=== PATIENT | male | born 1955 | race African-American/Black ===

== ENCOUNTER 2016-11-17 10:48 | Emergency (ER) | payer OTHER, SELFPAY ==
--- NOTE | 2016-11-17 11:56 | RAD ---
CHEST TWO VIEWS: History: Cough. Comparison: 09-06-03 FINDINGS: The cardiac silhouette and pulmonary vasculature are unremarkable. Lungs are well inflated. There is no confluent airspace consolidation, pneumothorax, or pleural fluid evident. Calcific thickening along the lateral margin of the right apex is stable. Post-operative changes of the left coracoid process are evident. Calcified granuloma are consistent with healed granulomatous disease. Nipple shadows overlie the lung bases. IMPRESSION: No active cardiopulmonary abnormalities are demonstrated. POS: [facility]
[2016-11-17 12:01] LABS: Bilirubin Negative (Negative); Blood, Urine Trace (Negative); Clarity Clear (Clear); Glucose, Urine (Dipstick) Negative (Negative); Leukocyte Negative (Negative); Nitrite Negative (Negative); Protein, Urine (Dipstick) Negative (Neg-Trace); Urobilinogen 0.2 mg/dL (0.2-1.0)
[2016-11-17 12:02] LABS: #Eosinphils 0.2 thou/uL (0.0-0.7); #Monocytes 0.5 thou/uL (0.11-0.59); #Neutrophils 2.8 thou/uL (1.40-6.50); %Basophils 0.8 % (0.0-1.0); %Eosinophils 3.2 % (0.0-10.0); %Lymphocytes 36.8 % (21.0-51.0); %Monocytes 8.3 % (0.0-10.0); %Neutrophils 50.9 % (42.0-75.0); Hemoglobin 12.9 g/dL (14.0-18.0); Mean Corpuscular HGB CONC 32.8 g/dL (32.0-36.0); Mean Corpuscular Hemoglobin 32.4 pg (27.0-31.0); Mean Corpuscular Volume 99.1 fl (80.0-94.0); Mean Platelet Volume 8.1 fL (7.4-10.4); Platelet Count 223 thou/uL (130-400); RBC Distribution Width 13.1 % (11.5-14.5); Red Blood Cell (RBC) Count 3.99 mill/uL (4.70-6.10); White Blood Cell (WBC) Count 5.5 thou/uL (4.8-10.8)
[2016-11-17 12:09] LABS: PTT 32.8 SEC (22.9-36.1); Prothrombin Time 13.8 SEC (12.0-14.7)
[2016-11-17 12:10] LABS: Bacteria/HPF None Seen HPF (None Seen); Squamous Epithelial 0-3 HPF (0-3); WBC/HPF 0-3 HPF (0-3)
[2016-11-17 12:13] LABS: Amphetamine Not Detected (NotDetected); Barbiturates Screen Not Detected (NotDetected); Benzodiazepine Screen Not Detected (NotDetected); Cocaine Metabolite Screen Not Detected (NotDetected); Medtox Control Line Valid? VALID (VALID); Methadone Not Detected (NotDetected); Methamphetamine Not Detected (NotDetected); Opiate Screen Detected (NotDetected); Oxycodone Screen Not Detected (NotDetected); Phencyclidine (PCP) Not Detected (NotDetected); THC/Cannabinoid Screen Detected (NotDetected); Tricyclic Screen Not Detected (NotDetected)
[2016-11-17 12:19] LABS: ALT (SGPT) 29 U/L (0-55); AST (SGOT) 27 U/L (5-34); Albumin 3.9 g/dL (3.4-4.8); Alkaline Phosphatase 95 U/L (40-150); Anion Gap 13 mmol/L (10-20); BUN (Urea Nitrogen) 10 mg/dL (8.4-25.7); Bilirubin, Total 0.3 mg/dL (0.2-1.2); Calc. Creatinine Clearance 0 mL/min (70-130); Calcium 9.4 mg/dL (7.8-10.44); Carbon Dioxide 26 mmol/L (23-31); Chloride 104 mmol/L (98-107); Estimated GFR-MDRD Greater than 90; Globulin 3.9 g/dL (2.4-3.5); Glucose 100 mg/dL (80-115); Lipase 78 U/L (8-78); Magnesium 2.1 mg/dL (1.6-2.6); Potassium 3.8 mmol/L (3.5-5.1); Protein, Total 7.8 g/dL (5.8-8.1); Sodium 139 mmol/L (136-145)
[2016-11-17 12:20] LABS: Acetaminophen Less than 3.0 mcg/mL (10.0-30.0); Alcohol Less than 10 mg/dL (Less than 10); Salicylate Less than 5.0 mg/dL (15.0-30.0)
[2016-11-17 12:22] LABS: CKMB 1.8 ng/mL (0-6.6); Troponin I 0.018 ng/mL (< 0.028)
[2016-11-17] MEDS ORDERED: cloNIDine 0.1mg/24 Hour PATCH ONE (12:23)
[2016-11-17] MEDS ORDERED: cloNIDine HCl 0.1 MG TAB ONE (12:24)
[2016-11-17 12:37] LABS: RBC/HPF 0-3 HPF (0-3)
== END 2016-11-17 15:15 | disposition home or self-care (01) ==
LOC: MADERS 10:48
DX: F32.9 Major depressive disorder, single episode, unspecified (principal)
CPT/HCPCS: 36415; 71020; 80053; 80306; 80307; 81003; 81015; 82553; 83690; 83735; 83880; 84443; 84484; 85025; 85610; 85730; 87086; 93005; 94760